=== PATIENT | male | born 1990 | race Two or more races ===

== ENCOUNTER 2021-03-03 18:31 | Emergency (ER) | payer MEDICAID ==
[~2021-03-03] VITALS: Ht 157.5 cm; Wt 82.0 kg
[2021-03-03 19:00] VITALS: BP 145/76
[2021-03-03] MEDS ORDERED: ACET-812 PO (20:10)
[2021-03-03] MEDS ORDERED: IBUP-1984 PO (20:10)
[2021-03-03] MEDS ORDERED: CYCL-1 PO (20:10)
== END 2021-03-03 20:27 | disposition home or self-care (01) ==
LOC: ER 18:34
DX: S29.012A Strain of muscle and tendon of back wall of thorax, initial encounter (principal); M62.830 Muscle spasm of back; Z79.899 Other long term (current) drug therapy; X58.XXXA Exposure to other specified factors, initial encounter; Y93.89 Activity, other specified; Y92.89 Other specified places as the place of occurrence of the external cause; Y99.8 Other external cause status
CPT/HCPCS: 99283

== ENCOUNTER 2021-06-30 07:03 | Emergency (ER) | payer MEDICAID ==
[~2021-06-30] VITALS: Ht 165.1 cm; Wt 81.8 kg
[~2021-06-30 07:03] MED LIST: CYCL-1 PO
[2021-06-30 07:14] VITALS: BP 137/86
[2021-06-30] MEDS ORDERED: TETanus/Pertussis (Acell)/Diphther VAC/PF (Tdap-Adult) 0.5ml syringe IMVAC ONE (07:30)
== END 2021-06-30 08:02 ==
LOC: ER 07:03
DX: S50.312A Abrasion of left elbow, initial encounter (principal); X58.XXXA Exposure to other specified factors, initial encounter; Y93.89 Activity, other specified; Y92.89 Other specified places as the place of occurrence of the external cause; Y99.8 Other external cause status
CPT/HCPCS: 90471; 90715; 99283

== ENCOUNTER 2021-11-13 15:22 | Emergency (ER) | payer MEDICAID ==
[~2021-11-13] VITALS: Ht 154.9 cm; Wt 79.5 kg
[2021-11-13 15:24] VITALS: BP 138/97
[2021-11-13] MEDS ORDERED: ketorolac trometh inj. 60 MG/2 ML VIAL IM ONE (15:40)
[2021-11-13] MEDS ORDERED: IBUP-1986 PO (16:14)
== END 2021-11-13 16:35 | disposition home or self-care (01) ==
LOC: ER 15:23
DX: S63.501A Unspecified sprain of right wrist, initial encounter (principal); X50.9XXA Other and unspecified overexertion or strenuous movements or postures, initial encounter; Y93.89 Activity, other specified; Y92.89 Other specified places as the place of occurrence of the external cause; Y99.8 Other external cause status
CPT/HCPCS: 29125; 73110; 96372; 99283; J1885

== ENCOUNTER 2021-12-05 14:39 | Emergency (ER) | payer OTHER, MEDICAID ==
[~2021-12-05] VITALS: Ht 157.5 cm; Wt 75.9 kg
[~2021-12-05 14:39] MED LIST changes: +IBUP-1986 PO
[2021-12-05 15:41] VITALS: BP 135/88
[2021-12-05] MEDS ORDERED: IBUP-1986 PO (17:05)
== END 2021-12-05 17:48 | disposition home or self-care (01) ==
LOC: ER 14:40
DX: S63.501D Unspecified sprain of right wrist, subsequent encounter (principal); W18.39XD Other fall on same level, subsequent encounter
CPT/HCPCS: 29125; 73110; 99283; L3908

== ENCOUNTER 2022-02-26 00:32 | Emergency (ER) | payer OTHER, MEDICAID ==
[~2022-02-26] VITALS: Ht 160 cm; Wt 77.0 kg
[2022-02-26] MEDS ORDERED: IBUP-1986 PO (07:04)
[2022-02-26] MEDS ORDERED: ACET-2615 PO (07:04)
[2022-02-26] MEDS ORDERED: acetaminophen 325mg tablet PO ONE (07:05)
[2022-02-26] MEDS ORDERED: ketorolac trometh inj. 60 MG/2 ML VIAL IM ONE (07:05)
[2022-02-26 08:22] VITALS: BP 126/87
== END 2022-02-26 08:24 | disposition home or self-care (01) ==
LOC: ER 00:32
DX: M54.9 Dorsalgia, unspecified (principal); R51.9 Headache, unspecified; V99.XXXA Unspecified transport accident, initial encounter; Y93.89 Activity, other specified; Y92.89 Other specified places as the place of occurrence of the external cause; Y99.8 Other external cause status
CPT/HCPCS: 96372; 99283; J1885